=== PATIENT | female | born 2005 | race Caucasian/White ===

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

== ENCOUNTER 2025-01-14 09:32 | Emergency (ER) | payer BC, MEDICAID, SELFPAY ==
--- NOTE | ~2025-01-14 | CT_ITS ---
EXAMINATION: CT abdomen pelvis w con DATE: 01/14/2025 11:08 INDICATION: Right lower quadrant pain TECHNIQUE: Computed tomography (CT) of the abdomen and pelvis was performed with 100 cc Omnipaque 350 intravenous contrast. The dose-length product was 323.75 mGy-cm. Automated exposure control and iterative reconstruction technique were employed. COMPARISON: None. FINDINGS: Lung bases unremarkable. Heart size normal. No significant pleural or pericardial effusion. There is an IUD in the uterus. There is free fluid in the paracolic gutters and pelvis. There is an involuting corpus luteal cyst of the right ovary. The appendix appears to be within normal limits. Nonobstructive bowel gas pattern. No significant vascular abnormality. There is a retroaortic left renal vein. Nonobstructive bowel pattern. No free air. IMPRESSION: 1. Involuting corpus luteal cyst of the right ovary with moderate free fluid in the lower abdomen and pelvis. Reviewed, dictated and finalized at location O.
--- NOTE | ~2025-01-14 | US_ITS ---
EXAMINATION: US pelvic complete INDICATION: Pelvic pain. Comparison:No prior studies for comparison. TECHNIQUE: Multiple transabdominal and endovaginal sonographic images of the pelvis performed. FINDINGS: The uterus measures 9.3 x 3.4 x 5.2 cm. There is an IUD in the endometrium. The endometrial complex measures 4 mm. The right ovary measures 4.7 x 1.3 x 1.3 cm and the left ovary measures 2.2 x 1.6 x 1.8 cm. There are small follicles in each ovary. Normal doppler signal in both ovaries. There is no free fluid in the pelvis. There are no abnormal masses seen on either side. IMPRESSION: 1. Unremarkable pelvic ultrasound. Reviewed, dictated and finalized at location O.
[2025-01-14 09:44] VITALS: BP 103/62; PULSE 85; RESP 14; TEMP 36.7; O2SAT 100
[2025-01-14 10:03] LABS: BEDSIDEPREGUCG Negative (Negative)
[2025-01-14 10:13] LABS: Hematocrit 39.7 % (37.0-47.0); Hemoglobin 13.4 g/dL (12.0-15.0); Immature Granulocyte Percent A 0.3 % (0-0.5); Lymphocytes Absolute Auto 1.98 K/mm3 (0.9-3.2); Mean Corpuscular HGB Conc 33.8 g/dl (32-36); Mean Corpuscular Hemoglobin 30.3 pg (26-34); Mean Corpuscular Volume 89.8 fl (80-100); Nucleated Red Blood Cells Absolute Auto 0.000 K/mm3 (0.0-0.012); Nucleated Red Blood Cells Perc 0.0 % (0.0-0.2); Platelet Count Result 249 k/mm3 (150-375); Red Blood Count 4.42 M/mm3 (4.2-5.4); White Blood Count 10.6 K/mm3 (4.5-10.0)
[2025-01-14 10:17] LABS: Add Urine Microscopic? NO; Appearance Urine Clear (Clear); Glucose Urine UA Negative (Negative); Leukocyte Esterase Ur Negative LEU/UL (Negative); Nitrate Urine Negative (Negative); Specific Grav Ur 1.018 (1.001-1.035)
--- NOTE | 2025-01-14 10:29 | ED_ITS ---
HPI - Abdominal Pain General Chief Complaint: Abdominal Pain Stated Complaint: RLQ pain Time Seen by Provider: 01/14/25 09:40 Source: patient Mode of arrival: ambulatory Limitations: no limitations History of Present Illness HPI narrative: This is a 19 year old female that presents to the ER for right lower quadrant abdominal pain. Ongoing since this morning. Associated with nausea. Denies fever, vomiting, dysuria, hematuria Related Data Allergies Allergy/AdvReac Type Severity Reaction Status Date / Time No Known Allergies Allergy Verified 12/29/24 09:44 Review of Systems 2 Review of Systems: All systems reviewed & are unremarkable except as noted in HPI and below PMFSH Past Medical History Medical History (Updated 01/14/25 @ 13:44 by Xuan Maher PA-C) No active medical problems Exam 2 Narrative: GENERAL: Well-appearing, well-nourished, and in no acute distress. HEAD: Normocephalic, atraumatic. EYES: EOMI. CHEST: Clear to auscultation. No respiratory distress. No wheezes rales or rhonchi HEART: Regular rate and rhythm. No murmur heard. Normal peripheral pulses. ABDOMEN: Soft, nondistended, normal active bowel sounds. Tender to palpation in the right lower quadrant, without guarding EXTREMITIES: Normal range of motion. No edema. SKIN: Warm, dry, no rash. NEURO: No focal deficits. Alert and oriented x3. PSYCH: Normal mood and affect Course Course Emergency Course: Patient updated on her workup, resting comfortably Vital Signs Vital signs: Vital Signs Temperature 98.0 F 01/14/25 09:44 Pulse Rate 85 01/14/25 09:44 Respiratory Rate 14 01/14/25 09:44 Blood Pressure 103/62 01/14/25 09:44 Pulse Oximetry 100 01/14/25 09:44 Oxygen Delivery Room Air 01/14/25 09:44 Temperature 98.0 F 01/14/25 09:44 Pulse Rate 81 01/14/25 12:59 Respiratory Rate 16 01/14/25 12:59 Blood Pressure 119/57 L 01/14/25 12:59 Pulse Oximetry 100 01/14/25 12:59 Oxygen Delivery Room Air 01/14/25 09:44 MDM - Abdominal Pain MDM Narrative Medical decision making narrative: Patient presents the emergency department for lower quadrant abdominal pain. Patient is afebrile and nontoxic appearing. Her vitals are stable. CBC with mild leukocytosis to 10.6. Metabolic panel without concerning findings. Urine without evidence of infection. test negative. CT abdomen pelvis shows involuting corpus luteal cyst on the right with moderate free fluid in the pelvis. Pelvic ultrasound is unremarkable. Patient updated on her workup, resting comfortably. 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 She was given warnings to return to the ER Differential Diagnosis Differential diagnosis: Likely acute appendicitis, calculus of kidney and other (Ovarian cyst) Lab Data Attestation: I reviewed the patient's lab results. 01/14/25 10:02 01/14/25 10:02 Labs: Lab Results 01/14/25 01/14/25 Range/Units 10:01 10:02 WBC 10.6 H (4.5-10.0) K/mm3 RBC 4.42 (4.2-5.4) M/mm3 Hgb 13.4 (12.0-15.0) g/dL Hct 39.7 (37.0-47.0) % MCV 89.8 (80-100) fl MCH 30.3 (26-34) pg MCHC 33.8 (32-36) g/dl RDW 12.4 (11.5-14.5) % Plt Count 249 (150-375) k/mm3 MPV 9.4 (7.4-10.4) fl Immature Gran % (Auto) 0.3 (0-0.5) % Neut % (Auto) 74.5 H (45.5-73.1) % Lymph % (Auto) 18.7 (18.3-44.2) % [place] % (Auto) 5.8 (2.6-8.5) % Eos % (Auto) 0.5 (0-4.4) % Baso % (Auto) 0.2 (0.2-1.2) % Lymph # (Auto) 1.98 (0.9-3.2) K/mm3 [place] # (Auto) 0.6 (0.1-0.6) K/mm3 Eos # (Auto) 0.1 (0-0.3) K/mm3 Baso # (Auto) 0.0 (0.0-0.1) K/mm3 Abs Immat Gran (auto) 0.03 (0.00-0.031) K/mm3 Absolute Neuts (auto) 7.9 H (1.3-6.7) K/mm3 Absolute Nucleated RBC 0.000 (0.0-0.012) K/mm3 Nucleated RBC % 0.0 (0.0-0.2) % Sodium 138 (134-143) mmol/L Potassium 4.0 (3.4-5.0) mmol/L Chloride 103 (98-107) mmol/L Carbon Dioxide 27 (22-30) mmol/L Anion Gap 8 (4-12) mmol/L BUN 12 (8-21) mg/dL Creatinine 0.63 L (0.7-1.0) mg/dL Estim Creat Clear Calc 97 ml/min Estimated GFR > 60 (59 - ) Glucose 98 (65-110) mg/dL Calcium 9.3 (8.9-10.7) mg/dL Total Bilirubin 0.3 (0.2-1.3) mg/dL AST 19 (14-36) U/L ALT 15 (6-35) U/L Alkaline Phosphatase 62 (45-116) U/L Total Protein 7.3 (6.3-8.6) g/dL Albumin 4.6 (3.7-5.6) g/dL Lipase 62 (23-300) U/L Urine Color Yellow (Yellow) Urine Appearance Clear (Clear) Urine pH 7.5 (5.0-9.0) Ur Specific [place] 1.018 (1.001-1.035) Urine Protein Negative (Negative) mg/dL Urine Glucose (UA) Negative (Negative) mg/dL Urine Ketones Negative (Negative) mg/dL Ur Blood (Man) Negative (Negative) Urine Nitrate Negative (Negative) Urine Bilirubin Negative (Negative) Urine Urobilinogen 0.2 (<2.0) mg/dL Leukocyte Esterase Rfl Negative (Negative) RICCO/UL POC Urine HCG, Qual Negative (Negative) Imaging Data Radiologist's impression: ITS Impressions Abdomen/Pelvis CT 01/14/25 11:09 IMPRESSION: 1. Involuting corpus luteal cyst of the right ovary with moderate free fluid in the lower abdomen and pelvis. Pelvis Ultrasound 01/14/25 12:46 IMPRESSION: 1. Unremarkable pelvic ultrasound. Critical Care Time Critical Care Time Critical Care Time: No Discharge Plan Discharge Clinical Impression: Ovarian cyst Qualifiers: Laterality: right Qualified Code(s): N83.201 - Unspecified ovarian cyst, right side Patient Disposition: Home Condition: Stable Instructions: Ruptured Ovarian Cyst (ED) Additional Instructions: Return to the ER if you experience fever, abdominal pain with nausea and vomiting, you are unable to keep down liquids or solids, or any other symptoms that are concerning to you Remain well hydrated. 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
[2025-01-14 10:32] LABS: Alanine Aminotransferase 15 U/L (6-35); Albumin Level 4.6 g/dL (3.7-5.6); Alkaline Phosphatase 62 U/L (45-116); Anion Gap 8 mmol/L (4-12); Aspartate Amino Transferase 19 U/L (14-36); Bilirubin,Total 0.3 mg/dL (0.2-1.3); Blood Urea Nitrogen 12 mg/dL (8-21); Calcium 9.3 mg/dL (8.9-10.7); Carbon Dioxide 27 mmol/L (22-30); Chloride 103 mmol/L (98-107); Estimated CRCL calculation 97 ml/min; Estimated Glomerular Filt Rate > 60; Glucose 98 mg/dL (65-110); Lipase 62 U/L (23-300); Potassium 4.0 mmol/L (3.4-5.0); Sodium 138 mmol/L (134-143); Total Protein 7.3 g/dL (6.3-8.6)
--- OUTSIDE RECORDS SUMMARY | 2025-01-14 10:47 | XMS_ITS | Data Portability ---
Author Organization [facility], [facility] Address [address] [place] [address] Care Team Providers Care Car Wash Attendant Automatic Name Role Phone [facility] Grocery Team Member Assessment Encounter Date Assessment Date Assessment LastModified by Organization Details LastModified Time 10/25/2016 10/25/2016 Patient was seen for a routine school physical. Reviewed patient's health history and physical exam, which show all normal findings as documented in the encounter. No evidence of scoliosis as documented above. TB risk . Immunizations up to date. Discussed plan as below with patient and family, who expressed understanding. Anticipatory guidance discussed. Follow up as below. [email or web address] Not available 10/25/2016 15:00:58 Plan of Treatment Reminders Order Date Submit Date Provider Last Modified By Organization Details Last Modified Time Details Appointments None recorded. Lab chlamydia trachomatis + neisseria gonorrhoeae + trichomonas vaginalis DNA panel, ANANDA+probe, unspecified specimen 2022 023 [facility] (Centralized Electronic Ordering - All Locations), Patient Can Go To The Location Of Their Choice, [id number] 3 22:07:28 von willebrand panel, platelet poor plasma 2022 023 [facility] (Centralized Electronic Ordering - All Locations), Patient Can Go To The Location Of Their Choice, [id number] 3 20:08:53 Referral None recorded. Procedures None recorded. Surgeries None recorded. Imaging None recorded. Medication Orders None recorded. Patient TargetsNo targets recorded. Patient Instructions Encounter Date Encounter Id Patient Instructions Last Modified By Organization Details Last Modified Time 10/25/2016 [id number] headache in children: care instructions [email or web address] Not available 10/25/2016 16:55:32 01/02/2023 [id number] Screening, Brief Intervention, and Referral to Treatment* [email or web address] Not available 01/02/2023 11:59:40 A healthy lifestyle: care instructions [email or web address] Not available 01/02/2023 11:59:40 un estilo de vid a horace: instrucciones de cuidado - [A healthy lifestyle: care instructions] [email or web address] Not available 01/02/2023 11:59:41 exercise [email or web address] Not available 12/24 11:59:41 nutrition [email or web address] Not available 12/24 11:59:40 01/05/2023 [id number] A healthy lifestyle: care instructions [email or web address] Not available 01/05/2023 15:44:57 un estilo de vid a horace: instrucciones de cuidado - [A healthy lifestyle: care instructions] [email or web address] Not available 01/05/2023 15:44:56 exercise Not available 2022 15:44:56 nutrition [email or web address] Not available 2022 15:44:57 08/23/2023 [id number] Screening, Brief Intervention, and Referral to Treatment* jting Not available 08/23/2023 14:17:51 A healthy lifestyle: care instructions jting Not available 08/23/2023 14:17:49 un estilo de vid a horace: instrucciones de cuidado - [A healthy lifestyle: care instructions] jting Not available 08/23/2023 14:17:49 exercise jting Not available 2023 14:17:49 nutrition jting Not available 2023 14:17:49 11/05/2023 [id number] Screening, Brief Intervention, and Referral to Treatment* jting Not available 11/05/2023 11:12:05 A healthy lifestyle: care instructions jting Not available 11/05/2023 11:12:02 exercise jting Not available 2023 11:12:02 nutrition jting Not available 2023 11:12:02 un estilo de vid a horace: instrucciones de cuidado - [A healthy lifestyle: care instructions] jting Not available 11/05/2023 11:12:02 Reason for Referral None Reported. Results Created Date Observation Date Name Description Value Unit Range Abnormal Flag Note LastModifiedBy Organization Detail LastModifiedTime 01/03/2001/02/2023 PREGN GLENN TEST, URINE test, urine NEGATI VE negati ve Not Available [facility] [address] [place] [address] [address], [place], [address], 01/02/2023 10:48:19 01/03/2001/02/2023 Scree marisabel, Brief Inter venti on, and Refer ral to Treat ment* In the past 2 weeks, have you felt nervous, anxious, or on edge? Not at all Not Available [facility] [address] [place], [address], 01/02/2023 10:43:14 01/03/2001/02/2023 Scree marisabel, Brief Inter venti on, and Refer ral to Treat ment* In the past 2 weeks, have you been unable to stop or control worrying? Not at all Not Available [facility] [address] [place], [address], 01/02/2023 10:43:14 01/03/2001/02/2023 Scremaylin davidsong, Brief Inter venti on, and Refer ral to Treat ment* How many times in the last year have you used drugs/prescr iption meds for non-medical reasons? None Not Available [facility] [address] [place], [address], 01/02/2023 10:43:14 01/03/2001/02/2023 Scree marisabel, Brief Inter venti on, and Refer ral to Treat ment* How many times in the past year have you had 4 drinks in 1 day? 0 Not Available [facility] [address] , [place], [address], 01/02/2023 10:43:14 01/03/2001/02/2023 Scremaylin davidsong, Brief Inter venti on, and Refer ral to Treat ment* Positive or Negative? negati ve Not Available [facility] [address] [place], [address], 01/02/2023 10:43:14 01/03/2001/02/2023 Scremaylin davidsong, Brief Inter venti on, and Refer ral to Treat ment* BH Referral? Not needed at this time Not Available [facility] [address] , [place], [address], 01/02/2023 10:43:14 01/06/2001/08/2023 CT, NG, TRICH VAG BY ANANDA chlamydia by ANANDA NEGATI VE negati ve Not Available [facility] ([facility]) [address] [place], [address], 01/08/2023 22:07:28 01/06/2001/08/2023 CT, NG, TRICH VAG BY ANANDA gonococcus by ANANDA NEGATI VE negati ve Not Available [facility] ([facility]) [address] [place], [address], 01/08/2023 22:07:28 01/06/2001/08/2023 CT, NG, TRICH VAG BY ANANDA trich vag by ANANDA NEGATI VE negati ve Not Available [facility] ([facility]) [address] [place], [address], 01/08/2023 22:07:28 01/06/2001/12/2023 PREGN GLENN TEST, URINE test, urine NEGATI VE negati ve Not Available [facility] [address] [place] [address] [place], [address], 01/12/2023 15:41:32 01/06/2001/15/2023 VW REFLE XIVE PROFI LE von willebrand factor activity 47 % below low normal Refer ence Range : 50 - 200 Not Available [facility] [address] [place], [address], 01/15/2023 20:08:53 01/06/2001/15/2023 VW REFLE XIVE PROFI LE von willebrand factor antigen 69 % Refer ence Range : 50 - 200 This test was devel oped and its perfo rmanc e sridhar cteri stics deter mined by [facility]. It has not been clear ed or appro diogenes by the Food and Drug Admin istra tion. Not Available [facility] [address] [place], [address], 01/15/2023 20:08:53 01/06/2001/15/2023 VW REFLE XIVE PROFI LE vw activity/vw antigen ratio 0.7 Refer ence Range : >0.6 Not Available [facility] [address] [place], [address], 01/15/2023 20:08:53 01/06/2001/15/2023 VW REFLE XIVE PROFI LE factor VIII activity 78 % Refer ence Range : 57 - 163 Not Available [facility] [address] [place], [address], 01/15/2023 20:08:53 01/06/2001/15/2023 VW REFLE XIVE PROFI LE pathologist interpretati on COMMEN T Writt en patho logis t inter preta tion is provi ded for the assay s perfo rmed at [facility] only. Inter preti ve Synop sis: [facility] nt panel may meet crite cheng for Von Tamara brand disea se (VWD) , depen ding on clini nadja scena tomasa. The 2020 [facility] guide lines recom mend a diagn ostic cutof f of <50% in patie nts with abnor mal bleed ing and a cutof f of <30% regar dless of bleed ing histo ry. Pleas e refer to the 2020 [facility] guide lines on the diagn osis of VWD (Bloo d Adv (2020 ) 5(1): 280-3 00) and the 2007 NHLBI VWD guide lines (www. nhlbi .nih. gov/g uidel siobhan/ vwd). The VW facto r antig en and facto r VIII activ ity are daniele l, while the VWF:R Co (rist oceti n cofac tor) activ ity is mildl y decre ased. The activ ity to antig en ratio is daniele l and thus a multi bella elio sis is not perfo rmed (as indiv idual s with a daniele l ratio typic ally have daniele l multi bella resul ts). In a patie nt with abnor mal bleed ing, this patte rn may be consi stent with type 1 VWD (alth ough an acqui red VWD canno t be entir nadira exclu ded). Low to low-n ormal level s may also occur in daniele l healt hy indiv idual s, parti cular ly those with type O blood . VW prote in level s may be affec [place]incoln by thera py, such as DDAVP , and clini nadja corre latio n is recom sujata d. Due to the acute phase natur e of these prote ins, consi bala repea t testi ng to confi rm this patte rn of [facility] ts. Pleas e conta ct [facility] if furth er lana ficat ion is needherbert Yang M.D. 2022 (Path ologi st inter preta tion time: 10 minut es) Not Available [facility] [address] [facility], [place], [address], 01/15/2023 20:08:53 08/23/19 24 08/23/2023 Scree marisabel, Brief Inter venti on, and Refer ral to Treat ment* In the past 2 weeks, have you felt nervous, anxious, or on edge? Not at all Not Available [facility] [address], [address], 08/23/2023 11:39:49 08/23/1908/23/2023 Scree marisabel, Brief Inter venti on, and Refer ral to Treat ment* In the past 2 weeks, have you been unable to stop or control worrying? Not at all Not Available [facility] [address], [address], 08/23/2023 11:39:49 08/23/1908/23/2023 Scree marisabel, Brief Inter venti on, and Refer ral to Treat ment* How many times in the last year have you used drugs/prescr iption meds for non-medical reasons? None Not Available [facility] [address], [address], 08/23/2023 11:39:49 08/23/1908/23/2023 Scree marisabel, Brief Inter venti on, and Refer ral to Treat ment* How many times in the past year have you had 4 drinks in 1 day? 0 Not Available [facility] [address], [address], 08/23/2023 11:39:49 08/23/1908/23/2023 Scree marisabel, Brief Inter venti on, and Refer ral to Treat ment* Positive or Negative? negati ve Not Available [facility] [address], [address], 08/23/2023 11:39:49 08/23/1908/23/2023 Scree marisabel, Brief Inter venti on, and Refer ral to Treat ment* BH Referral? Not needed at this time Not Available [facility] [address], [address], 08/23/2023 11:39:49 11/05/1911/05/2023 Scree marisabel, Brief Inter venti on, and Refer ral to Treat ment* In the past 2 weeks, have you felt nervous, anxious, or on edge? Not at all Not Available [facility] [address], [address], 11/05/2023 11:03:02 11/05/1911/05/2023 Scree marisabel, Brief Inter venti on, and Refer ral to Treat ment* In the past 2 weeks, have you been unable to stop or control worrying? Not at all Not Available [facility] [address], [address], 11/05/2023 11:03:02 11/05/1911/05/2023 Scree marisabel, Brief Inter venti on, and Refer ral to Treat ment* How many times in the last year have you used drugs/prescr iption meds for non-medical reasons? 1 or more Not Available [facility] [address], [address], 11/05/2023 11:03:02 11/05/1911/05/2023 Scree marisabel, Brief Inter venti on, and Refer ral to Treat ment* How many times in the past year have you had 4 drinks in 1 day? 0 Not Available [facility] [address], [address], 11/05/2023 11:03:02 11/05/1911/05/2023 Scree marisabel, Brief Inter venti on, and Refer ral to Treat ment* Positive or Negative? negati ve Not Available [facility] [address], [address], 11/05/2023 11:03:02 11/05/19 24 11/05/2023 Idalia petit, Brief Inter venti on, and Refer ral to Treat ment* BH Referral? Not needed at this time Not Available [facility] [address] [place], [address], 11/05/2023 11:03:02 08/23/19 24 08/10/2023 CT, abdom en + pelvi s, w/ contr ast No observ ation record ed. [email or web address] [facility] [address] [place], [address], 08/23/2023 15:26:36 11/15/19 24 11/05/2023 US, trans vagin al No observ ation record ed. [facility] [address] [place], [address], 11/15/2023 10:24:13 Result Notes None recorded. Problems Name Problem SNOMED Code Status Onset Date Resolution Date Notes Provider Name and Address Organization Details Recorded Time Dental consultati on and report Active 2013 Recorded Elsewhere: No;Location : [facility]Chronic : N;Practice ID: 0002 Not Available [facility] 7 01:28:58 Problem Notes None recorded. Procedures Surgical History Date Name Laterality Status Provider Name and Address Organization Details Recorded Time 4 Pelvic Ultrasound, Limited completed Ann Tirado [facility] 11/05/2023 11:06:31 3 IUD Insertion completed Gerardo Joseph DO [address] [place] [address], [address], [facility] 01/05/2023 15:47:20 Imaging Results None recorded. Procedure Notes None recorded. Medical Equipment None Reported. Allergies No known drug allergies Medications Name Sig Start Date Stop Date Status Note LastModified by Organization Details LastModified Time Mirena 21 mcg/24 hr (up to 8 years) 52 mg intrauter ine device Take by intraute rine route. 10/20/ 2023 active Not Available Not Available Not Avai lable sulfameth oxazole 800 mg-trimet hoprim 160 mg tablet 08/22 completed Not Available Not Available Not Available cyprohept adine 4 mg tablet 08/22 completed complted mj Not Available Not Available Not Available pantopraz ole 40 mg tablet,de layed release active taking 11/04 Not Available Not Available Not Available omeprazol e 20 mg capsule,d elayed release TAKE 1 CAPSULE BY MOUTH TWICE DAILY BEFORE MEAL(S) 08/22 completed stoped mj Not Available Not Available Not Available nitrofura ntoin monohydra te/macroc rystals 100 mg capsule 08/22 completed Not Available Not Available Not Available Lo Loestrin Fe 1 mg-10 mcg (24)/10 mcg (2) tablet 08/22 completed stoped mj Not Available Not Available Not Available Vitals Date Recorded Body height Body mass index (BMI) Body mass index (BMI) [Percentile] Per age and sex Body weight Heart rate Systolic And Diastolic Provider Name and Address Organization Details Last Updated DateTime 4 154.94 cm 26.1 kg/m2 86 % 73327.7 5 g 83 /min 123/81 mm[Hg] Maria A Camp RN [facility] 4 11:37:31 Date Recorded Body height Body mass index (BMI) Body weight Body temperature Heart rate Respiratory rate Oxygen saturation Oxygen saturation in Arterial blood by Pulse oximetry Systolic And Diastolic Provider Name and Address Organization Details Last Updated DateTime 7 149.23 cm 20.7 kg/m2 08000.9 8 g 98.4 [degF] 80 /min 20 /min 99 % 99 % 96/55 mm[Hg] Aubrie Terrell LPN [facility] 7 14:27:39 Date Recorded Pain severity - 0-10 verbal numeric rating [Score] - Reported Provider Name and Address Organization Details Last Updated DateTime 10/25/2016 5 Not Available [facility] 8 05:56:46 Date Recorded Body height Body mass index (BMI) [Percentile] Per age and sex Body mass index (BMI) Body weight Respiratory rate Heart rate Systolic And Diastolic Provider Name and Address Organization Details Last Updated DateTime 4 154.94 cm 89 % 27.4 kg/m2 84115.1 8 g 18 /min 82 /min 110/75 mm[Hg] Qian Francisco LPN [facility] 4 11:04:50 Date Recorded Body height Body mass index (BMI) [Percentile] Per age and sex Body mass index (BMI) Body weight Respiratory rate Heart rate Systolic And Diastolic Provider Name and Address Organization Details Last Updated DateTime 3 154.94 cm 86 % 25.9 kg/m2 96057.1 5 g 18 /min 97 /min 129/70 mm[Hg] Cuca Sosa LPN [facility] 3 10:33:25 Date Recorded Body height Provider Name an d Address Organization Details Last Updated DateTime 01/05/2023 154.94 cm Vernaabimbola [facility] 01/05/2023 14:54:34 Date Recorded Body mass index (BMI) [Percentile] Per age and sex Body mass index (BMI) Body weight Respiratory rate Heart rate Systolic And Diastolic Provider Name and Address Organization Details Last Updated DateTime 3 87 % 26.2 kg/m2 16343.1 8 g 18 /min 89 /min 113/78 mm[Hg] Cuca Sosa LPN [facility] 3 14:59:27 Social History Question Answer Notes LastModified by Organization Details LastModified Time Tobacco Smoking Status Never Smoker Aubrie Terrell LPN [facility] 10/25/2016 14:30:24 If You Are , What Was Your Level Of Alcohol Consumption Prior To ? None [email or web address] Information not available 01/02/2023 Animal Exposure? Yes Poodle Puppy Information not available 10/25/2016 Do You Wear A Helmet When Biking? No [email or web address] Information not available 10/25/2016 What Is Your Level Of Caffeine Consumption? Occasional [email or web address] Information not available 10/25/2016 What Type Of Traffic Inspector Do You Use? None [email or web address] Information not available 10/25/2016 Concerns About Meeting Basic Needs (food, Housing, Heat, Etc)? No [email or web address] Information not available 10/25/2016 What Type Of Diet Are You Following? REGULAR [email or web address] Information not available 10/25/2016 Does Family Ever Have Difficulty Making Ends Meet At The End Of The Month? No [email or web address] Information not available 10/25/2016 Have There Been Any Changes To Your Family Or Social Situation? No [email or web address] Information not available 10/25/2016 What Is The Fluoride Status Of Your Home? Fluoridated [email or web address] Information not available 10/25/2016 Are There Any Guns Present In Your Home? No [email or web address] Information not available 10/25/2016 What Is Your Home Situation? Both Parents [email or web address] Information not available 10/25/2016 Do You Use Insect Repellent Routinely? Yes [email or web address] Information not available 10/25/2016 PRAPARE Screening Completed On: 01/02/2023 [email or web address] Information not available 01/02/2023 Are You Worried About Losing Your Housing? No Information not available 01/02/2023 In The Past Year Have You Or Any Of Your Family Members Been Unable To Get FOOD When It Was Really Needed? No [email or web address] Information not available 01/02/2023 In The Past Year Have You Or Any Of Your Family Members Been Unable To Get MEDICINE Or HEALTH CARE When It Was Really Needed? No [email or web address] Information not available 01/02/2023 Has Lack Of Transportation Kept You From Medical Appointments, Meetings, Work, Or From Getting Things Needed For Daily Living? No [email or web address] Information not available 01/02/2023 In The Past Year, Have You Been Afraid Of Your Partner Or Ex-partner? No [email or web address] Information not available 01/02/2023 Does The Patient Have Social Needs That Need To Be Addressed? No [email or web address] Information not available 01/02/2023 What Was The Date Of Your Most Recent Tobacco Screening? 11/05/2023 [email or web address] Information not available 11/05/2023 Family Has Moved Frequently/lived With Others Due To Finances Within The Last Year? No [email or web address] Information not available 10/25/2016 How Many Children Do You Have? 0 [email or web address] Information not available 01/02/2023 What Is Your Parents' Marital Status? [email or web address] Information not available 10/25/2016 Do You Have Any Pets? 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 [email or web address] Information not available 10/25/2016 What Is Your Relationship Status? Single [email or web address] Information not available 01/02/2023 What Is The Name Of Your School? [employer] [email or web address] Information not available 10/25/2016 Seat Belts Used Routinely Yes Information not available 10/25/2016 Are You Sexually Active? No [email or web address] Information not available 01/02/2023 Do You Have Any Siblings? 2 [email or web address] Information not available 10/25/2016 Do You Have Smoke And Carbon Monoxide Detectors In Your Home? Yes [email or web address] Information not available 10/25/2016 Are You Passively Exposed To Smoke? No [email or web address] Information not available 10/25/2016 How Much Tobacco Do You Smoke? No [email or web address] Information not available 10/25/2016 What Types Of Sporting Activities Do You Participate In? Swimming, Softball, Bowling, Volley Ball. [email or web address] Information not available 10/25/2016 Do You Use Sunscreen Routinely? Yes [email or web address] Information not available 10/25/2016 Has Tobacco Cessation Counseling Been Provided? No [email or web address] Information not available 01/02/2023 How Many Years Have You Smoked Tobacco? 0 [email or web address] Information not available 10/25/2016 Have You Recently Traveled Abroad? No [email or web address] Information not available 01/02/2023 Year In School 6 [email or web address] Informat ion not available 10/25/2016 Sex: Female Functional Status Question Answer Note LastModified by Organizat ion Details LastModified Time Do you use any illicit or recreational drugs? No [email or web address] Information not available 01/02/2023 Do you or have you ever used any other forms of tobacco or nicotine? No [email or web address] Information not available 01/02/2023 What is your level of alcohol consumption? None [email or web address] Information not available 01/02/2023 What is your exercise level? Occasional [email or web address] Information not available 01/02/2023 Mental Status Question Answer Note LastModified by Organization D etails LastModified Time Are you or have you been involved with bullying? No [email or web address] Information not available 10/25/2016 Family History Relationship Description Onset Age of this Age Resolved Age Notes LastModified by Organization Details LastModified Time Father No current problems or disability [email or web address] Not available 12/2022 10:37:24 Mother No current problems or disability [email or web address] Not available 12/2022 10:37:24 Medical History Condition Response Allergies (Food, seasonal, environmental ) N Coronary Artery Disease N Other Y Gout N Hyperthyroidism N Breast Cancer N Blood Transfusion N Dermatologic Disorders N COPD N Hypothyroidism N Developmental or Behavioral Disorders N Defects or Inherited Disease N Gestational Diabetes N History of STI N Deep Vein Thrombosis N Polycystic ovary syndrome N Anxiety Disorder Y Meniere's disease N Autoimmune disease N Muscle, Joint, or Bone Problems N Obesity N Vision or Eye Problems Y Head Injury/Concussion N Infertility N Varicosities N Stroke N Neurologic/Epilepsy N Endometriosis N Bladder or Kidney Problems N Back Injury N High Cholesterol N Psychiatric/Mental Health Condition N Headaches Y Fibromyalgia N Kidney Disease N Ear or Hearing Problems N Hospitalizations N Learning Disorder N Prostate Cancer N Hematologic disorders/Anemia N GI Problems N Acne N ADD/ADHD N Eating Disorder N Anemia Y MRSA exposure N Brain Injury N Heart Attack ([place]) N Mental Illness N Ovarian Cancer N Diabetes N Bedwetting N Hepatitis/Liver Disease N Bleeding Disorder N Tuberculosis N AIDS/HIV N Congestive Heart Failure (CHF) N Diverticulitis N Abuse/Domestic Violence N Asthma N Trauma/Violence N Substance Abuse N Depression/ depression N Heart Disease N Pulmonary Embolism N Pre-Eclampsia N Hypertension N Osteoporosis N Gynecological History Statement/Question Response Flow Heavy Date of LMP 12/26/2022 Frequency of Cycle (Q days) 30 Do you receive [facility] Services within [place]? N Do we have a copy of your most recent Pa p Smear? N Have you had a Pap Smear within the last 3 or 5 years? N Duration of Flow (days) 3 Sexual Problems? Age at Menarche 12 Current Control Method IUD Obstetrics History GPAL:G 0 P 0 0 0 0 Immunizations Vaccine Type Date Status Note Provider Nam e and Address Organization Details Recorded Time DTaP 6 completed Sun Barney RN null, [facility] 10/25/2016 14:49:56 DTaP 6 completed Sun Barney RN null, [facility] 10/25/2016 14:50:12 DTaP 6 completed Sun Barney RN null, [facility] 10/25/2016 14:50:23 DTaP 7 completed Sun Barney RN null, [facility] 10/25/2016 14:50:38 DTaP 7 sommer Barney RN null, [facility] 10/25/2016 14:50:58 DTaP 1 sommer Barney RN null, [facility] 10/25/2016 14:51:56 IPV 6 completed Sun Barney RN null, [facility] 10/25/2016 14:52:07 IPV 6 completed Sun Barney RN null, [facility] 10/25/2016 14:52:19 IPV 6 completed Sun Barney RN null, [facility] 10/25/2016 14:52:30 IPV 7 sommer Barney RN null, [facility] 10/25/2016 14:52:52 IPV 7 sommer Barney RN null, [facility] 10/25/2016 14:53:03 IPV 1 sommer Barney RN null, [facility] 10/25/2016 14:53:20 Hib, unspecified formulation 6 sommer Barney RN null, [facility] 10/25/2016 14:53:34 Hib, unspecified formulation 6 sommer Barney RN null, [facility] 10/25/2016 14:53:48 Hib, unspecified formulation 6 completed ROCÍO Thornton, [facility] 10/25/2016 14:54:01 Pneumococcal Conjugate, unspecified formulation 6 completed ROCÍO Thronton, [facility] 10/25/2016 14:54:26 Pneumococcal Conjugate, unspecified formulation 6 completed ROCÍO Thornton, [facility] 10/25/2016 14:54:37 Pneumococcal Conjugate, unspecified formulation 6 completed ROCÍO Thornton, [facility] 10/25/2016 14:54:55 Hep B, adolescent or pediatric 6 completed ROCÍO Thornton, [facility] 10/25/2016 14:55:08 Hep B, adolescent or pediatric 6 completed ROCÍO Thornton, [facility] 10/25/2016 14:55:23 Hep B, adolescent or pediatric 6 completed RCOÍO Thornton, [facility] 10/25/2016 14:55:35 MMR 6 completed ROCÍO Thornton, [facility] 10/25/2016 14:55:47 MMR 1 ROCÍO Mcmillan, [facility] 10/25/2016 14:56:03 varicella 6 completed ROCÍO Thornton, [facility] 10/25/2016 14:56:19 varicella 1 ROCÍO Mcmillan, [facility] 10/25/2016 14:56:30 Influenza, injectable,quadriv alent, preservative free, pediatric 9 completed ROCÍO Thornton, [facility] 10/25/2016 14:56:50 Influenza, injectable,quadriv alent, preservative free, pediatric 3 completed ROCÍO Thornton, [facility] 10/25/2016 14:56:55 Influenza, injectable,quadriv alent, preservative free, pediatric 4 completed Sun Barney RN [facility] 10/25/2016 14:56:59 Meningococcal MCV4O 7 completed Not Available [facility] 04/12/2019 02:32:43 Tdap 7 completed Not Available [facility] 04/12/2019 02:32:42 HPV9 7 completed Not Available [facility] 04/12/2019 02:32:42 Past Encounters Encounter ID Performer Location Encounter Start Date Encounter Closed Date Diagnosis/Indication Diagnosis SNOMED-CT Code Diagnosis ICD10 Code Diagnosis IMO Codes Diagnosis Note [id number] Nik Baltazar MD [facility] [address] [place] [address] 10/25/2016 14:00:58 10/25/2016 16:58:35 History and physical examination, school 27026873 Z02.0 School Physical Complete Immunizati ons updated as recommende d by the CDC and required by school program. normal physical assessment without abnormal findings or concerns today. Reviewed age related safety concerns and healthcare maintenanc e guidelines . pt and family verbalized understand ing and deny further needs at this time. Active or passive immunization 907529297 Z23 Headache 59456004 R51 recommende d nsaid therapy at this time and to keep track of headaches by journaling to monitor trend vs trigger, pt and mom verbalized understand ing. rtc if vision change, unilateral weakness or changes, increased fatigue, or wakes her up in the night. pt and mom verbalzie demian gasca. [id number] Yamilet Michael MD [facility] [address] [place] [address] 01/02/2023 10:09:33 01/02/2023 11:32:02 Screening for disorder 078411491 Z13.9 Overweight 393190711 E66 .3 Body mass index 25-29 - overweight 440076331 Z68.25 Dietary ma nagement surveillance 833989449 Z71.3 Exercises education, guidance, and counseling 062971568 Z71.82 Dysmenorrhea 452532744 N 94.6 Off lo-loestri n x1 monthEduca lincoln on cycle and symptom trackingBr iefly discussed possibilit y of endometrio sis given pain/n/v unrelated to menstrual cycle with heavy menstrual bleeding-- discussed treatment options of cyclic COCs, POPs, ibuprofen, IUDs. Pt strongly desires IUD Discussed common side effects of IUD. Reviewed insertion procedure. Pt reports low pain tolerance but wants to proceed with IUD placement. She will pre-medica te with 1000mg tylenol and 800mg ibuprofen prior to her IUD insertion appt. RTC at pt [facility] for IUD insertion [id number] Gerardo Joseph DO [facility] [address] [place] [address] 01/05/2023 14:46:03 01/05/2023 15:49:07 Primary dysmenorrhea 97680696 N94.4 Insertion of intrauterine contraceptive device 10680586 Z30.430 Menorrhagia 904855406 N9 2.0 Reports hx of anemia, but has resolvedDe sires IUDRecent normal TSHWill check for VWIUD inserted w/o issueRTC in 4 month to eval symptoms Screening for disorder 315972124 Z13.9 Overweight 294535510 E66 .3 Body mass index 25-29 - overweight 283617615 Z68.26 Dietary ma nagement surveillance 998127000 Z71.3 Exercises education, guidance, and counseling 316892044 Z71.82 [id number] Davide Mendoza MD [facility] [place] [address] 08/23/2023 10:59:57 08/23/2023 12:10:36 Overweight 098003863 E66.3 Body mass index 25-29 - overweight 409425624 Z68.26 Dietary ma nagement surveillance 283269533 Z71.3 Exercises education, guidance, and counseling 998135305 Z71.82 Cyst of left ovary 67223 85126 4278532 N83.202 simple cyst noted on L ovary measuring 4.2cm.ne mmend repeat TVUS in 2-3 months for follow up or sooner if needed.ova sima torsion warning signs reviewed with pt.discuss ed with pt when a trip to ER would be recommende d, verbalizes understand ing.pt leaving for college, she will schedule right before she leaves Screening for disorder 275346113 Z13.9 [id number] Davide Mendoza MD [facility] [address] [address] 11/05/2023 10:43:50 11/07/2023 09:49:34 Screening for disorder 775644438 Z13.9 Overweight 603897544 E66 .3 Body mass index 25-29 - overweight 436371313 Z68.27 Dietary ma nagement surveillance 716463495 Z71.3 Exercises education, guidance, and counseling 577822265 Z71.82 Cyst of left ovary 65035 79203 3948081 N83.202 simple cyst noted on L ovary measuring 4.2cm.ne mmend repeat TVUS in 2-3 months for follow up or sooner if needed.ova sima torsion warning signs reviewed with pt.discuss ed with pt when a trip to ER would be recommende d, verbalizes understand ing.pt leaving for college, she will schedule right before she leaves 11/04: TVUS for follow up on Lt Ov cyst. The cyst has resolved. No FF seen. Ovs contains small follicles bilaterall y. vasc flow seen in both ovs.- recommend annual follow up or sooner if any concerns. IUD check 227930761 Z30. 431 11/05/23: TVUS: IUD seen within endo cavity.pt denies issues or concernsre commend string check annually or sooner if any issues or concerns. Health Concerns Section Related Observation LastModified by Organization Detai ls LastModified Time None Recorded Concern Status LastModified by Organization Details LastModified Time None Recorded Advance Directives Directive None Recorded Payers Insurance Date Sequence Insurance Name Policy Number Policy Cho Covered Member ID Cho Member ID Guarantor Name 11/02/2023 1 [facility] - DOS ON OR AFTER 20 (MEDICAID REPLACEMENT - HMO) Nicolasa Miranda [id number] Nicolasa Lino Labotte 10/25/2016 1 *SELF PAY* Anette Lino Labotte 12/22/2022 SLIDING FEE SCHEDULE - DISCOUNT Nicolasa Lino Labotte 10/24/2016 SLIDING FEE SCHEDULE - DISCOUNT Nicolasa Lino Labotte 10/24/2016 SLIDING FEE SCHEDULE - DISCOUNT Nicolasa Miranda 02/19/2023 1 [place] [id number] Nicolasa Miranda [id number] Nicolasa Miranda 12/22/2022 SLIDING FEE SCHEDULE - DISCOUNT Nicolasa Miranda Notes Date Note Type Note Provider Name and Address Organization Details Recorded Time 10/26/19 17 text/ht ml Pediatric HeadacheReported by PatientHPIFor quality, patient reportsachingandthrobbingbut reportsnot the worst headache everandsimilar to previous headaches. For severity, patient reportsmoderate. For duration, patient reportsoccur many times in groups or clusters. For onset/timing, patient reportsbetter. For context, patient reportsnot related to traumaandno history of concussion. For associated symptoms, patient reportsno fever,no chills,no sweating,no nausea,no vomiting,no abdominal pain,no motion sickness,no rhinorrhea,no sensitivity to light,no double vision,no ocular symptoms,no sensitivity to sound,no confusion,no preceeding aura,no neck stiffness,no numbness/tingling,normal feeling/sensation,no motor symptoms,no weakness,no dizziness,no sleep disturbances,no nosebleeds, andno sore throat.Reports headache relieved with aleve. occasionally gets nauseated with it. does not wake her up at night. the headache is similar to ones previously, they began around when she started her period. Patient presents to the office today for a school physical exam. C/O headaches. No other reported problems. Billie Barr, N[employer] [address] [place] [address], [phone], [facility] 10/25/2016 15:41:29 01/03/20 23 text/ht ml ROS as noted in the HPI Nicolasa is here today to discuss heavy/painful periods. LMP 12/26/22. First period 11-12 years old, heavy/painful. Pt was started on iron for anemia during this time. She has been followed by her PCP since and is no longer requiring iron. Had lab work about 1 week ago. She reports for 1-2 weeks prior to her period she has a lot of pain, nausea, vomiting. She then has 1-2 days of heavy bleeding following by 3-4 days of spotting. She said her periods are causing her to miss school. Treatment to date: POP x1 month, no relief. MICHEL x 1 month, no relief and caused fatigue, numbness/tingling in her limbs. Pt strongly desires an IUD. Never been sexually active, no concerns for STIs. Sandra Fontana ronnie, [facility] 01/02/2023 12:06:18 01/06/20 23 text/ht ml ROS as noted in the HPI 17yo female that presents as a referral from Sandra Fontana for IUD insertion Treatment to date has included the following:POP x1 month, no relief. MICHEL x 1 month, no relief and caused fatigue, numbness/tingling in her limbs. Patient reports that she started having periods at age 11-12. Previously anemic. She started having severe cramping and and very heavy. Tried NSAIDs but stopped because she felt like she was using to much MENSTRUAL HX:Age of first menarche: 11Period pattern: Regular occurring every 28 daysMenses duration:2-3 daysMenstrual flow: Moderate- Tampons changed every 1-2 hours ( super +) w/ padClots: Yes- quarter to largedysmenorrhea: severe ERP PROGRAMMER HXLast pap smear: N/a Hx of abnormal:Sexually active: NoHx of STI s : NoContraception: NoneDesires future fertility: not now OB HX: G0 P Delivery Type:Surgical Hx:Medical HX:Pertinent medical history reviewed and notable forAnemiaAnxietyComplex Migraines - unsure if it is was aura FAMILY HX:Denies any history of breast, uterine, ovarian or colon cancer Type ,,, SOCHX:Alcohol: no drinks/weekTobacco: Denies Amount: Drugs: Denies Senior in high high school. Lives w/ mom and dad, 3 sisters and dog, in a house, Favorite subject in school science. Wants to be a pathologist. Gerardo Joseph DO [address] [place] [address], [place], [address], [facility] 01/05/2023 15:47:50 08/23/19 24 text/ht ml ROS as noted in the HPI pt arrives to follow up on L ovarian cyst that was found incidentally on CT scan.no issues with IUD.does have some left sided aching at times ROXANA WAGGONER CNM [address] [place], [address], [facility] 08/23/2023 14:18:15 11/05/19 24 text/ht ml ROS as noted in the HPI pt arrives to follow up on ovarian cyst. pt denies pain or other concerns today. ROXANA WAGGONER CNM [address] [place], [address], [facility] 11/05/2023 11:19:02 OBGyn Episode No OBEpisode recorded.
[2025-01-14 12:59] VITALS: BP 119/57; PULSE 81; RESP 16; O2SAT 100
[2025-01-14 14:00] VITALS: BP 101/54; PULSE 58; RESP 16; O2SAT 100
== END 2025-01-14 14:16 | disposition home or self-care (01) ==
PROVIDERS: Emergency Provider Physician Assistant
DX: N83.11 Corpus luteum cyst of right ovary (principal)
CPT/HCPCS: 36415; 74177; 76856; 80053; 81003; 81025; 83690; 85025; 99284; Q9967

== ENCOUNTER 2025-02-09 09:47 | Emergency (ER) | payer MEDICAID, BC, SELFPAY ==
[2025-02-09 10:02] VITALS: BP 109/70; PULSE 73; RESP 16; TEMP 36.5; O2SAT 100
--- NOTE | 2025-02-09 10:25 | ED_ITS ---
HPI - Female Genitourinary General Chief complaint: Urogenital-Female Stated complaint: Uti Symptoms Time Seen by Provider: 02/09/25 10:17 Source: patient and RN notes reviewed Mode of arrival: ambulatory Limitations: no limitations History of Present Illness HPI Narrative: 20-year-old female presents with concern for one-week history of dysuria, frequency. She reports nighttime nausea. She denies abdominal pain or back pain. Denies fever, aches, chills, sweats MD elicited complaint: UTI Related Data Allergies Allergy/AdvReac Type Severity Reaction Status Date / Time No Known Allergies Allergy Verified 02/09/25 10:00 Review of Systems Review of Systems: CONSTITUTIONAL: Denies malaise, chills, sweats, or fever. CARDIOVASCULAR: Denies chest pain, palpitations, or edema. RESPIRATORY: Denies cough or dyspnea. GASTROINTESTINAL: Denies abdominal pain, vomiting, diarrhea. Reports occasional nausea GENITOURINARY: Reports dysuria, frequency. Denies urgency, suprapubic pressure. Denies flank pain or hematuria. SKIN: Denies rash or itching. MUSCULOSKELETAL: Denies back pain or myalgia. All systems reviewed & are unremarkable except as noted in HPI and below PMFSH Past Medical History Medical History (Updated 02/09/25 @ 10:26 by Kelly Vogt APRN) No active medical problems Comments At time of signature, agree with nursing past medical, surgical, social and family history. There is no relevant family history pertinent to the presenting complaint Exam Narrative: GENERAL: Well-appearing, well-nourished, and in no acute distress. HEAD: Normocephalic. EYES: PERRLA, conjunctivae clear. NECK: Supple. No lymphadenopathy CHEST: Clear to auscultation. No respiratory distress. HEART: Regular rate and rhythm. ABDOMEN: Soft, nontender upon palpation, nondistended, no palpable or pulsatile masses, no guarding. No CVA tenderness SKIN: Warm, dry, no rash. NEURO: Alert and oriented x3. PSYCH: Normal mood and affect Course Course Emergency Course: Patient is aware of diagnosis, understands and agrees to treatment plan. Anticipatory guidance given. Patient agrees to follow-up as directed and is aware of reasons to seek care at the emergency department. Portions of this record may have been created with voice recognition software Level of Care: Express Care Visit Vital Signs Vital signs: Vital Signs Temperature 97.7 F 02/09/25 10:02 Pulse Rate 73 02/09/25 10:02 Respiratory Rate 16 02/09/25 10:02 Blood Pressure 109/70 02/09/25 10:02 Pulse Oximetry 100 02/09/25 10:02 Temperature 97.7 F 02/09/25 10:02 Pulse Rate 73 02/09/25 10:02 Respiratory Rate 16 02/09/25 10:02 Blood Pressure 109/70 02/09/25 10:02 Pulse Oximetry 100 02/09/25 10:02 Reviewed. MDM - Female Genitourinary MDM Narrative Medical decision making narrative: Exam findings and UA show no acute concerns or changes; patient is non-toxic appearing and is in no distress. Patient is appropriate for outpatient treatment and follow-up. Differential Diagnosis Differential diagnosis: Likely urinary tract infection and cystitis Critical Care Time Critical Care Time Critical Care Time: No Discharge Plan Discharge Clinical Impression: Urinary tract infection Patient Disposition: Home Condition: Stable Instructions: Antibiotic Form, Urinary Tract Infection in Women (ED) Additional Instructions: We will send a urine culture to the lab; if the culture identifies an organism that the prescribed antibiotic will not treat, you will receive a phone call from an urgent care staff member and an appropriate antibiotic will be prescribed. -Your symptoms should begin to improve within a day of starting antibiotics. But you should finish all the antibiotic pills you get. Otherwise your infection might come back. -Also recommend: increase water intake. Tylenol/ibuprofen as needed for pain or fever -Follow-up with your primary care provider for urine recheck or seek ER visit if condition worsens with high fever, nausea, vomiting and severe back pain. Patient Language: Azerbaijani Prescriptions: New sulfamethoxazole-trimethoprim 800-160 mg tablet 1 tablet PO Q12H 7 Days Qty: 14 0RF Follow-up/Referrals: PHYSICIAN,BUSINESS DEVELOPMENT ASSISTANT [Primary Care Provider, Internal Medicine] Time of Disposition: 10:26
[2025-02-09 10:39] LABS: EDUAAPPEAR Cloudy; EDUABILI Negative (Negative); EDUABLOOD Trace (Negative); EDUACOLOR1 Yellow; EDUAGLUCOSE Negative (Negative); EDUAKETONE Negative (Negative); EDUALEUKO 3+ (Negative); EDUANITRATE Negative (Negative); EDUAPH 7.0; EDUAPROTEIN Trace (Negative); EDUASPGRAVITY 1.020; EDUAUROBILI 0.2
== END 2025-02-09 10:29 | disposition home or self-care (01) ==
PROVIDERS: Emergency Provider Nurse Practitioner
DX: N39.0 Urinary tract infection, site not specified (principal)
CPT/HCPCS: 81003; 87086; 99213; G0463